=== PATIENT | male | born 1970 | race American Indian/Alaskan Native ===

== ENCOUNTER 2016-06-07 12:50 | Emergency (ER) | payer SELFPAY ==
[2016-06-07] MEDS ORDERED: ZOFRAN ODT ONE (13:16)
[2016-06-07] MEDS ORDERED: ZOFRAN ODT PO ONE (13:23)
[2016-06-07 16:59] LABS: Hematocrit 41.9 % (35.5-45.6); Hemoglobin 13.1 gm/dl (11.8-15.2); Mean Corpuscular HGB Conc 31 % (32-34); Mean Corpuscular Hemoglobin 27 pg (28-32); Mean Corpuscular Volume 86 fl (84-94); Platelet Count 221 K/mm3 (140-440); Red Blood Count 4.85 M/mm3 (3.65-5.03); Red Cell Distribution Width 14.6 % (13.2-15.2); White Blood Count 12.6 K/mm3 (4.5-11.0)
[2016-06-07 17:52] LABS: Amylase 156 units/L (27-131); Anion Gap 22 mmol/L; BUN/Creatinine Ratio 13.33; Blood Urea Nitrogen 12 mg/dL (9-20); Calcium 9.6 mg/dL (8.4-10.2); Carbon Dioxide 22 mmol/L (22-30); Chloride 107.7 mmol/L (98-107); Glucose 102 mg/dL (75-100); Lipase 45 units/L (13-60); Potassium 4.9 mmol/L (3.6-5.0); Sodium 147 mmol/L (137-145)
[2016-06-07 18:41] LABS: Bilirubin,Urine NEG (Negative); Blood,Urine SM (Negative); Ketones,Urine 20 mg/dL (Negative); Leukocyte Esterase,Urine NEG (Negative); Mucus,Urine FEW /HPF; Nitrite,Urine NEG (Negative); Protein,Urine <15 mg/dL mg/dL (Negative); Urobilinogen,Urine < 2.0 mg/dL (<2.0)
[2016-06-07] MEDS ORDERED: NACL ONE (19:18)
[2016-06-07 19:35] LABS: Basophils % (Manual) 0 % (0.0-1.8); Blastocytes % (Manual) 0 %; Eosinophils % (Manual) 0 % (0.0-4.3)
[2016-06-07 19:36] LABS: Anisocytosis 1+; Diff Status Complete; Platelet Estimate Consistent w Auto
--- NOTE | 2016-06-07 20:51 | Cat Scan Report ---
FINAL REPORT PROCEDURE: CT ABDOMEN PELVIS W CON TECHNIQUE: Computerized axial tomography of the abdomen and pelvis was performed after the IV injection of iodinated nonionic contrast. Oral contrast was not given. HISTORY: Abdominal pain. Clinical concern for pancreatitis. Evaluate for pancreatitis. COMPARISON: No prior studies are available for comparison. FINDINGS: Visualized lower thorax: No significant abnormality. Liver: There is a large 4.1 centimeter hypodense focus in the posterior upper right liver. This has peripheral nodular enhancement and shows partial fill-in with contrast on the delayed images and therefore this is most likely a large cavernous hemangioma. More inferiorly in the right lobe of the liver there is a 1.5 centimeter hypodensity measuring close to fluid density. This does not fill in with contrast and is probably a cyst. Elsewhere there is a tiny hypodensity in the anterior liver to the right of the falciform ligament. This is too small to characterize therefore remains nonspecific. However given its typical location this is probably an incidental area of focal fatty infiltration.. Spleen: Normal size and attenuation. Gallbladder and biliary system: Normal. Pancreas: The pancreas shows no CT abnormality. There is no CT evidence of inflammation or fluid around the pancreas. However this patient is very thin with a paucity of abdominal fat. Therefore mild inflammation may be difficult to detect by CT. The pancreas perfuses normally. Adrenals: Normal. Kidneys: Normal. GI tract: There is slight distention of the stomach which is filled with large amount of fluid. This could simply be due to recent meal but is nonspecific. Some small hyperdense foci in the upper posterior stomach are also nonspecific but could be ingested material or incidental calcifications. The appendix cannot be identified with certainty. This in part is due to a paucity of abdominal fat in this thin patient. Several fluid-filled structures in the deep pelvis are likely un opacified loops of small bowel. Evaluation is limited without oral contrast. The bowel appears unremarkable otherwise when considering lack of oral contrast.. Lymph nodes and mesentery: Normal. Vasculature: Normal. Bladder: Normal. Reproductive organs: Normal. Peritoneum: No free fluid. Musculoskeletal structures: No significant abnormality. Other: None. IMPRESSION: 1. There is no CT evidence of inflammation or fluid surrounding the pancreas. However this patient is very thin with a paucity of abdominal fat. Therefore mild inflammation around the pancreas and elsewhere in the abdomen may be difficult to detect on CT. The pancreas perfuses normally. 2. Probable large 4.1 centimeter cavernous hemangioma in right liver. 3. Probable small 1.5 centimeter cyst also in the right liver 4. Mild distention of the stomach filled with fluid could simply be due to recent meal but is nonspecific. 5. The appendix cannot be identified. This in part is due to a paucity of abdominal fat in this patient.
[2016-06-07 21:26] VITALS: BP 113/72
[2016-06-07] MEDS ORDERED: BENTYL PO ONE (22:00)
--- NOTE | 2016-06-08 05:56 | Event Note ---
Date: 06/08/16 She presents to the ER with abdominal pain. He was nontender my examination. CT scan demonstrated a number of nonspecific findings. At the time of discharge she was afebrile, with reassuring vital signs, tolerating liquid feeds. He is instructed to follow up with outpatient primary care. Return precautions reviewed. Vital Signs 06/07/16 06/07/16 13:20 21:25 Temperature 98.0 F Pulse Rate 79 77 Respiratory 20 16 Rate Blood Pressure 121/84 Blood Pressure 113/72 [Left] O2 Sat by Pulse 100 98 Oximetry Lab Results 06/07/16 06/07/16 06/07/16 Range/Units 16:12 16:12 18:17 WBC 12.6 H (4.5-11.0) K/mm3 RBC 4.85 (3.65-5.03) M/mm3 Hgb 13.1 (11.8-15.2) gm/dl Hct 41.9 (35.5-45.6) % MCV 86 (84-94) fl MCH 27 L (28-32) pg MCHC 31 L (32-34) % RDW 14.6 (13.2-15.2) % Plt Count 221 (140-440) K/mm3 Add Manual Diff Complete Total Counted 100 Seg Neutrophils % Validation Scientist Seg Neuts % (Manual) 88.0 H (40.0-70.0) % Band Neutrophils % 6.0 % Lymphocytes % (Manual) 3.0 L (13.4-35.0) % Reactive Lymphs % (Man) 0 % Monocytes % (Manual) 3.0 (0.0-7.3) % Eosinophils % (Manual) 0 (0.0-4.3) % Basophils % (Manual) 0 (0.0-1.8) % Metamyelocytes % 0 % Myelocytes % 0 % Promyelocytes % 0 % Blast Cells % 0 % Nucleated RBC % Not Reportable Seg Neutrophils # Man 11.1 H (1.8-7.7) K/mm3 Band Neutrophils # 0.8 K/mm3 Lymphocytes # (Manual) 0.4 L (1.2-5.4) K/mm3 Abs React Lymphs (Man) 0.0 K/mm3 Monocytes # (Manual) 0.4 (0.0-0.8) K/mm3 Eosinophils # (Manual) 0.0 (0.0-0.4) K/mm3 Basophils # (Manual) 0.0 (0.0-0.1) K/mm3 Metamyelocytes # 0.0 K/mm3 Myelocytes # 0.0 K/mm3 Promyelocytes # 0.0 K/mm3 Blast Cells # 0.0 K/mm3 WBC Morphology Not Reportable Hypersegmented Neuts Not Reportable Hyposegmented Neuts Not Reportable Hypogranular Neuts Not Reportable Smudge Cells Not Reportable Toxic Granulation Not Reportable Toxic Vacuolation Not Reportable Dohle Bodies Not Reportable Pelger-Huet Anomaly Not Reportable Lulú Rods Not Reportable Platelet Estimate Consistent w auto Clumped Platelets Not Reportable Plt Clumps, EDTA Not Reportable Large Platelets Not Reportable Giant Platelets Not Reportable Platelet Satelliting Not Reportable Plt Morphology Comment Not Reportable RBC Morphology Not Reportable Dimorphic RBCs Not Reportable Polychromasia Not Reportable Hypochromasia Not Reportable Poikilocytosis Not Reportable Anisocytosis 1+ Microcytosis Not Reportable Macrocytosis Not Reportable Spherocytes Not Reportable Pappenheimer Bodies Not Reportable Sickle Cells Not Reportable Target Cells Not Reportable Tear Drop Cells Not Reportable Ovalocytes Not Reportable Helmet Cells Not Reportable [place] Bodies Not Reportable [place] Rings Not Reportable Miquel Cells Not Reportable Bite Cells Not Reportable Crenated Cell Not Reportable Elliptocytes Not Reportable Acanthocytes (Spur) Not Reportable Rouleaux Not Reportable Hemoglobin C Crystals Not Reportable Schistocytes Not Reportable Malaria parasites Not Reportable Nas Bodies Not Reportable Hem Pathologist Commnt No Sodium 147 H (137-145) mmol/L Potassium 4.9 (3.6-5.0) mmol/L Chloride 107.7 H (98-107) mmol/L Carbon Dioxide 22 (22-30) mmol/L Anion Gap 22 mmol/L BUN 12 (9-20) mg/dL Creatinine 0.9 (0.8-1.5) mg/dL Estimated GFR > 60 ml/min BUN/Creatinine Ratio 13.33 % Glucose 102 H (75-100) mg/dL Calcium 9.6 (8.4-10.2) mg/dL Amylase 156 H (27-131) units/L Lipase 45 (13-60) units/L Urine Color Yellow (Yellow) Urine Turbidity Clear (Clear) Urine pH 5.0 (5.0-7.0) Ur Specific [place] 1.026 (1.003-1.030) Urine Protein <15 mg/dl (Negative) mg/dL Urine Glucose (UA) Neg (Negative) mg/dL Urine Ketones 20 (Negative) mg/dL Urine Blood Sm (Negative) Urine Nitrite Neg (Negative) Urine Bilirubin Neg (Negative) Urine Urobilinogen < 2.0 (<2.0) mg/dL Ur Leukocyte Esterase Neg (Negative) Urine WBC (Auto) 1.0 (0.0-6.0) /HPF Urine RBC (Auto) 2.0 (0.0-6.0) /HPF Urine Mucus Few /HPF
--- NOTE | 2016-06-08 18:32 | Emergency Department Report ---
Entered by ELEANOR CARBONE, acting as scribe for RICKY LEVINE PA. <FREDDY GARVEY - Last Filed: 06/07/16 21:32> ED N/V/D HPI - General Chief complaint: Nausea/Vomiting/Diarrhea Stated complaint: N/V CHILLS Time Seen by Provider: 06/07/16 15:43 - Related Data Previous Rx's Medication Instructions Recorded Last Taken Type Famotidine [Pepcid] 20 mg PO BID #30 tablet 06/07/16 Unknown Rx Ondansetron [Zofran Odt] 4 mg PO BID #10 tab.rapdis 06/07/16 Unknown Rx Allergies Allergy/AdvReac Type Severity Reaction Status Date / Time No Known Allergies Allergy Unverified 06/07/16 13:20 ED Review of Systems ROS: Stated complaint: N/V CHILLS Other details as noted in HPI ED Past Medical Hx - Medications Home Medications: Home Medications Medication Instructions Recorded Confirmed Last Taken Type Famotidine [Pepcid] 20 mg PO BID #30 tablet 06/07/16 Unknown Rx Ondansetron [Zofran Odt] 4 mg PO BID #10 tab.rapdis 06/07/16 Unknown Rx ED Course Vital Signs 06/07/16 06/07/16 13:20 21:25 Temperature 98.0 F Pulse Rate 79 77 Respiratory 20 16 Rate Blood Pressure 121/84 Blood Pressure 113/72 [Left] O2 Sat by Pulse 100 98 Oximetry - Reevaluation(s) Reevaluation #3: 06/07/16 21:[address] Moran, he performed a physical examination on patient. He advised me to give patient Bentyl and discharge on pepcid and zofran and to follow up with GI doctor. Patient informed CYNDY Arguelles that he did not have time to wait for the medication. I stress importance of follow up with GI, patient states understanding. ED Medical Decision Making - Lab Data Result diagrams: 06/07/16 16:12 06/07/16 16:12 Critical care attestation.: If time is entered above; I have spent that time in minutes in the direct care of this critically ill patient, excluding procedure time. ED Disposition Clinical Impression: Nausea & vomiting Qualifiers: Vomiting type: unspecified Vomiting Intractability: non-intractable Qualified Code(s): R11.2 - Nausea with vomiting, unspecified Diarrhea Qualifiers: Diarrhea type: unspecified type Qualified Code(s): R19.7 - Diarrhea, unspecified Abdominal pain Qualifiers: Abdominal location: epigastric Qualified Code(s): R10.13 - Epigastric pain Disposition: DISCHARGED TO HOME OR SELFCARE Condition: Stable Instructions: Acute Nausea and Vomiting (ED), Abdominal Pain (ED) Additional Instructions: Please follow up with gastrointestinal doctor as advised by Dr. Moran. Prescriptions: Famotidine [Pepcid] 20 mg PO BID #30 tablet Ondansetron [Zofran Odt] 4 mg PO BID #10 tab.rapdis Referrals: PRIMARY CARE, [Primary Care Provider] - 3-5 Days TORO POOLE MD [Staff Physician] - 3-5 Days MARCELLA GUTIERRES MD [Staff Physician] - 3-5 Days <RICKY LEVINE - Last Filed: 06/08/16 18:32> ED N/V/D HPI - General Source: patient Mode of arrival: Ambulatory Limitations: No Limitations - History of Present Illness Initial comments: 46 year old male presents to the emergency department for evaluation of nausea, vomiting, diarrhea and associated epigastric pain and chills that began during the night. Patient reports he ate BBQ from a restaurant for dinner last night several hours prior to symptom onset. He states he has been unable to tolerate PO intake since onset and took Pepto Bismol with no relief. Denies fever, shortness of breath, chest pain. Denies past medical history of cholelithiasis , and excessive EtOH use. MD complaint: nausea, vomiting, diarrhea, abdominal pain -: During the night Associated Abdominal Pain: Yes Location: epigastric Radiation: none Improves with: none Worsens with: eating, vomiting Context: possible food poisoning (ate BBQ from restaurant for dinner prior to onset) Associated Symptoms: nausea/vomiting, other (reports chills. Denies fever). denies: chest pain, shortness of breath ED Review of Systems Comment: All other systems reviewed and negative Constitutional: chills, fever Respiratory: denies: shortness of breath Cardiovascular: denies: chest pain Gastrointestinal: abdominal pain (epigastric), nausea, vomiting, diarrhea. denies: hematemesis, melena ED Past Medical Hx - Past Medical History Previous Medical History?: No - Surgical History Past Surgical History?: No - Social History Smoking Status: Never Smoker Substance Use Type: None ED Physical Exam - General Limitations: No Limitations General appearance: alert, in no apparent distress, other (The patient is well- developed and well-nourished. Patient is in NAD.) - Head Head exam: Present: atraumatic, normocephalic - Eye Eye exam: Present: normal appearance - Respiratory Respiratory exam: Present: normal lung sounds bilaterally. Absent: respiratory distress, wheezes, rales, rhonchi - Cardiovascular Cardiovascular Exam: Present: regular rate, normal rhythm, normal heart sounds. Absent: systolic murmur, diastolic murmur, rubs, gallop - GI/Abdominal GI/Abdominal exam: Present: soft, tenderness (epigastric), normal bowel sounds. Absent: distended, guarding, rebound - Rectal Rectal exam: Present: deferred - Back Exam Back exam: Absent: CVA tenderness (R), CVA tenderness (L) - Neurological Exam Neurological exam: Present: alert, oriented X3 - Psychiatric Psychiatric exam: Present: normal affect, normal mood - Skin Skin exam: Present: warm, dry, intact ED Course - Reevaluation(s) Reevaluation #1: 06/07/16 18:[address] Baker in regards to patient's elevated WBC and amylase. He recommended CT with IV contrast to rule out pancreatitis. Reevaluation #2: 06/07/16 19:00 Signed off patient to Krystyna Garvey NP. ED Medical Decision Making - Lab Data Result diagrams: 06/07/16 16:12 06/07/16 16:12 ED Disposition Is pt being admited?: No This documentation as recorded by the [employer] mcgowan REBEKAH,accurately reflects the service I personally performed and the decisions made by ,RICKY LEVINE PA.
== END 2016-06-07 21:36 | disposition home or self-care (01) ==
LOC: ED 12:50
DX: R11.2 Nausea with vomiting, unspecified (principal); R19.7 Diarrhea, unspecified; R10.13 Epigastric pain
CPT/HCPCS: 36415; 74177; 80048; 81001; 82150; 83690; 85007; 85025; 99284; Q9967; Q0162